=== PATIENT | female | born 2000 | race Caucasian/White ===

== ENCOUNTER 2019-07-23 20:55 | Emergency (ER) | payer OTHER ==
[~2019-07-23] VITALS: Ht 172.7 cm; Wt 79.4 kg
[2019-07-23] MEDS ORDERED: NF (21:08)
[2019-07-23] MEDS ORDERED: KEFLEX500 M1 PO (21:45)
[2019-07-23 22:29] VITALS: BP 137/74
== END 2019-07-23 22:20 | disposition home or self-care (01) ==
LOC: ER 20:55
DX: S61.210A Laceration without foreign body of right index finger without damage to nail, initial encounter (principal); W26.0XXA Contact with knife, initial encounter; Y92.816 Subway car as the place of occurrence of the external cause; Y93.89 Activity, other specified; Y99.0 Civilian activity done for income or pay